=== PATIENT | female | born 2005 | race Caucasian/White ===

== ENCOUNTER 2023-09-24 14:14 | Emergency (ER) | payer OTHER, SELFPAY ==
[2023-09-24 14:35] VITALS: BP 136/79; BP 136/82; PULSE 82; PULSE 97; RESP 16; TEMP 36.4; O2SAT 100; O2SAT 99; BMI 29.5
--- NOTE | 2023-09-24 14:43 | ECG_ITS ---
Test Reason : WEAKNESS Blood Pressure : / mmHG Vent. Rate : 085 BPM Atrial Rate : 085 BPM P-R Int : 130 ms QRS Dur : 078 ms QT Int : 360 ms P-R-T Axes : 052 067 036 degrees QTc Int : 428 ms Normal sinus rhythm with sinus arrhythmia Possible Left atrial enlargement Borderline ECG No previous ECGs available Referred By: Tonya Altamirano Electronically Signed By:GUY LARSON
--- NOTE | 2023-09-24 14:46 | ED_ITS ---
HPI - Anxiety General Chief Complaint: Anxiety Stated Complaint: PSEUDO SZ Time Seen by Provider: 09/24/23 14:36 Source: patient and old records reviewed Mode of arrival: EMS Limitations: no limitations History of Present Illness HPI narrative: 18 yo female with PMH of anxiety and bipolar disorder here with c/o being in math today and feeling anxiety, dizzy, off and then they noted eye tracking acting weird and her arms were shaking but no LOC was speaking. She was lowered to the ground. She did not take her hydroxyzine this AM. MD complaint: anxiety Onset (ago): minute(s) (just prior to arrival ) Symptoms: dyspnea, palpitations, extremity numbness/tingling and sense of impending doom Severity: moderate Quality: improving Place: work and school History of similar episodes: No Provoking factors: none known Relieving factors: rest Exacerbating factors: nothing Associated symptoms: denies other symptoms Related Data Allergies Allergy/AdvReac Type Severity Reaction Status Date / Time peanut Allergy Anaphylaxis Verified 09/24/23 14:42 Penicillins [PCN] Allergy Unknown Verified 09/24/23 14:42 Seasonal Allergies Allergy Runny Nose Verified 09/24/23 14:42 Review of Systems Review of Systems: Constitutional : No Fever, No Chills ENT/Mouth : No Ear Pain, No Nasal Congestion, No sore throat Eyes: No Eye Pain, No Swelling, No Redness Cardiovascular : No Chest Pain, No SOB Respiratory : No Cough, No Sputum, No Dyspnea Gastrointestinal : No Nausea, No Vomiting, No Diarrhea, No Hematochezia, No Melena Genitourinary : No Dysuria, No Urinary Frequency, No Hematuria Musculoskeletal : No Myalgias Skin : No Skin Lesions, No rash Neuro : No Weakness, No Numbness, No Paresthesias, pos Dizziness, No Headache Psych : positive Anxiety, no Depression, no SI/HI All other systems reviewed and are negative [facility] [place] Past Medical History Attestation statement: The following information was validated with the patient. Source: old records reviewed Medical History Depression Anxiety Bipolar disorder Asthma Social History Social History (Updated 09/24/23 @ 14:50 by Tonya Altamirano DO) Patient Tobacco Use Status: Never used Tobacco Smoked in Last 30 Days: No Use of substances other than those prescribed or required for medical reasons: Yes Substance Use Type: Marijuana Substance Use Frequency: Occasionally Advance Directives: No Advance Directives Information Provided: No Patient : No Physical Exam Vital Signs: Vital Signs: Last Vital Signs Temp 97.6 F 09/24/23 14:35 Pulse 82 09/24/23 14:35 Resp 16 09/24/23 14:35 BP 136/82 09/24/23 14:35 Pulse Ox 99 09/24/23 14:35 O2 Del Method Room Air 09/24/23 14:35 BMI result Body Mass Index 29.5 Appearance: Alert. Oriented X3. No acute distress. Eyes: Pupils equal, round and reactive to light. ENT: Pharynx normal. Neck: Normal inspection. Neck supple. CVS: Normal heart rate and rhythm. Pulses normal. Respiratory: No respiratory distress. Breath sounds normal. Abdomen: Soft and nontender. Skin: Skin warm and dry. Normal skin color. Normal skin turgor. Extremities: No lower extremity edema. No calf ttp Neuro: Oriented X 3. No motor deficit. No sensory deficit. Medications Administered Discontinued Medications Generic Name Dose Route Start Last Admin Trade Name Freq PRN Reason Stop Dose Admin Hydroxyzine HCl 25 mg 09/24/23 14:43 09/24/23 14:56 Hydroxyzine Hcl 25 Mg Tablet PO 09/24/23 14:44 25 mg ONCE ONE Administration Medical Decision Making Medical Decision Making [facility] Narrative: 18 yo female with PMH of bipolar disorder, anxiety here with event with anxiety, felt dizzy, was intermittent shaking, talking during event did not take her hydroxyzine this AM. At this time will need basic labs, EKG if negative she is stable for DC Differential Diagnosis Differential Diagnoses: The differential diagnosis associated with the presentation includes anxiety, dehydration, anemia Admission/Observation Consideration of admission/observation: Escalation of care including admission/observation considered work up negative stable for DC Lab Data [facility] Lab Attestation statement: I reviewed the patient's lab results. Independent Interpretation I performed an independent interpretation of an: EKG Interpretation: Rate: 85 Rhythm: NSR [place]: normal Normal P waves. Normal SHEKHAR. Normal QRS complex. ST T wave : normal no SHANNAN, inverted t wave in V1-V2 qTC: 428 prior studies: no acute ischemia The study has been interpreted contemporaneously by me. . Independent Historian Clinical information obtained from an independent historian. History obtained from or confirmed by: EMS External Record Review External record reviewed: Inpatient record Discharge Plan Discharge Clinical Impression: Acute anxiety Patient Disposition: Home, Self-Care Instructions: Panic Disorder (ED) Additional Instructions: return for worsening symptoms or concerns. you were given a dose of hydroxyzine while in the ED. take your hydroxyzine tomorrow Stand Alone Forms: Work/School Release Print Language: Yakut
[2023-09-24] MEDS: hydrOXYzine HCL 25 MG TABLET PO (14:56)
[2023-09-24 15:25] LABS: MANUAL DIFF FLAG NO
[2023-09-24 15:29] LABS: Basophils Absolute Auto 0.1 X10*3/uL (0.0-0.2); Basophils Percent Auto 0.5 % (0-2); Eosinophils Absolute Auto 0.1 X10*3/uL (0.0-0.4); Eosinophils Percent Auto 1.3 % (0-4); Hematocrit 39.3 % (37.0-47.0); Hemoglobin 12.5 g/dl (12.0-16.0); Imm Gran Abs Auto 0.04 X10*3/uL (0.00-0.03); Imm Gran Pct Auto 0.4 % (0.0-0.4); Lymphocytes Absolute Auto 2.5 X10*3/uL (1.2-4.9); Lymphocytes Percent Auto 23.4 % (20-40); Mean Corpuscular HGB Conc 31.8 g/dl (31.0-35.0); Mean Corpuscular Hemoglobin 25.2 pg (27.0-33.0); Mean Corpuscular Volume 79.2 fL (80.0-98.0); Mean Platelet Volume 10.1 fL (9.4-12.3); Monocytes Absolute Auto 1.1 X10*3/uL (0.1-1.2); Monocytes Percent Auto 9.8 % (2-11); Neutrophils Percent Auto 64.6 % (45-73); Platelet Count 256 X10*3/uL (160-400); Red Blood Count 4.96 X10*6/uL (4.20-5.50); Red Cell Distribution Width 15.9 % (11.0-16.0); White Blood Count 10.9 X10*3/uL (4.8-10.8)
[2023-09-24 15:54] LABS: Anion Gap 11 (12-20); Blood Urea Nitrogen 15 mg/dL (9-16); Calcium 9.2 mg/dL (8.4-10.2); Carbon Dioxide 23 mmol/L (22-29); Chloride 109 mmol/L (96-108); Creatinine Clr Calc Pharmacy 118.8; Estimated Glomerular Filt Rate > 60; Glucose Random 99 mg/dL (60-115); Potassium 3.8 mmol/L (3.3-5.1); Sodium 139 mmol/L (135-145)
[2023-09-24 16:51] LABS: HCG Quantitative < 2 mIU/mL
[2023-09-24 17:51] VITALS: BP 125/75; PULSE 80; RESP 18; TEMP 36.6; O2SAT 100
== END 2023-09-24 17:52 | disposition home or self-care (01) ==
PROVIDERS: Emergency Medicine; Emergency Provider Emergency Medicine Emergency Medical Services
DX: F41.1 Generalized anxiety disorder (principal); F43.0 Acute stress reaction; I49.8 Other specified cardiac arrhythmias; Z79.899 Other long term (current) drug therapy
CPT/HCPCS: 36415; 80048; 84702; 85025; 93005; 99283; 99284

== ENCOUNTER → 2023-09-24 14:43 | Outpatient (BNV) | payer OTHER, SELFPAY | PROVIDERS: Emergency Provider Emergency Medicine Emergency Medical Services; Visit Provider Internal Medicine | DX: R53.1 Weakness (principal) | CPT/HCPCS: 93010 ==